=== PATIENT | male | born 1945 | race Caucasian/White ===

== ENCOUNTER 2018-02-16 12:16 | Outpatient (CLI) | payer OTHER ==
--- NOTE | 2018-02-16 14:14 | RAD ---
2 VIEWS CHEST: Date: 02/16/18 PROVIDED CLINICAL HISTORY: COPD. FINDINGS: No comparisons. Cardiac and mediastinal silhouette is within normal limits. Surgical clips are seen in the right para spinal and in the right apical regions. Chronic obstructive changes are demonstrated. There is asymme tric right apical opacity. There is elevation of the right hemidiaphragm with blunting of the right l ateral costophrenic angle. Calcified pleural plaques are seen. There is no definite pneumothorax. IMPRESSION: Asymmetric right apical opacity and prominent chronic obstructive change. In the absence of chest rad iographic comparisons to document stability for the right apical opacity, chest CT is recommended. CODE T. POS: OFF
== END 2018-02-16 12:17 | disposition home or self-care (01) ==
LOC: RAD 12:16 → CP 12:17
PROVIDERS: ATTEND Orthopaedic Surgery
DX: J44.9 Chronic obstructive pulmonary disease, unspecified (principal); R91.8 Other nonspecific abnormal finding of lung field
CPT/HCPCS: 71046